=== PATIENT | female | born 1950 | race Caucasian/White ===

== ENCOUNTER 2017-10-10 12:34 | Emergency (ER) | payer MEDICARE ==
[2017-10-10] MEDS ORDERED: cefTRIAXone\\ROCEPHIN 1 GM VIAL ONE (13:09)
[2017-10-10] MEDS ORDERED: Lidocaine 1% 20 ML MDV ONE (13:09)
== END 2017-10-10 13:15 | disposition home or self-care (01) ==
LOC: MADERS 12:34
DX: J06.9 Acute upper respiratory infection, unspecified (principal); E03.9 Hypothyroidism, unspecified; F41.9 Anxiety disorder, unspecified; F17.210 Nicotine dependence, cigarettes, uncomplicated; Z79.899 Other long term (current) drug therapy
CPT/HCPCS: 96372; J0696; J2001

== ENCOUNTER 2018-06-20 14:49 | Emergency (ER) | payer MEDICARE, OTHER | END 2018-06-20 15:30 | disposition home or self-care (01) | LOC: MADERS 14:49 | DX: J06.9 Acute upper respiratory infection, unspecified (principal); I10 Essential (primary) hypertension; E03.9 Hypothyroidism, unspecified; F41.9 Anxiety disorder, unspecified; F17.210 Nicotine dependence, cigarettes, uncomplicated; Z79.899 Other long term (current) drug therapy; Z71.6 Tobacco abuse counseling | CPT/HCPCS: 99406 ==